=== PATIENT | female | born 1980 | race Caucasian/White ===

== ENCOUNTER 2020-05-07 05:21 | Inpatient (IN) | payer BC ==
[2020-05-07] MEDS ORDERED: Scopolamine 1.5 MG Transdermal Patch TOP ONE (05:30)
[2020-05-07] MEDS ORDERED: Celecoxib 200 MG Cap PO ONE (05:30)
[2020-05-07] MEDS ORDERED: Acetaminophen 500 MG Tab PO ONE (05:30)
[2020-05-07] MEDS ORDERED: Dextrose 5%-Lactated Ringers 1,000 ML IV SCH ×2 (06:00→10:15)
[2020-05-07] MEDS ORDERED: cefOXitin 2 GM Vial ONE (06:35)
[2020-05-07] MEDS ORDERED: fentaNYL 250 MCG/5 ML SDV ONE (06:56)
[2020-05-07] MEDS ORDERED: Ondansetron 4 MG/2 ML SDV ONE (06:57)
[2020-05-07] MEDS ORDERED: Succinylcholine 200 MG/10 ML MDV ONE (06:57)
[2020-05-07] MEDS ORDERED: Neostigmine Methylsulfate 1 MG/ML 5 ML Syringe ONE (06:57)
[2020-05-07] MEDS ORDERED: Propofol 200 MG/20 ML SDV ONE (06:57)
[2020-05-07] MEDS ORDERED: Glycopyrrolate 0.2 MG/ML 5 ML MDV ONE (06:57)
[2020-05-07] MEDS ORDERED: Dexamethasone 4 MG/ML SDV ONE (06:57)
[2020-05-07] MEDS ORDERED: Rocuronium 50 MG/5 ML Vial ONE (06:57)
[2020-05-07] MEDS ORDERED: Albuterol/Ipratropium 3.0-0.5 MG/3 ML Neb Soln NEB ONE (07:00)
[2020-05-07] MEDS ORDERED: cefOXitin 2 GM in Sodium Chloride 0.9% 50 ML IV ONE (07:00)
[2020-05-07] MEDS ORDERED: Magnesium Sulfate 3.9 GM in Sodium Chloride 0.9% 100 ML IV SCH (07:15)
[2020-05-07] MEDS ORDERED: Ketamine 500 MG/5 ML MDV IV SCH (07:15)
[2020-05-07] MEDS ORDERED: Ketamine 50 MG in Sodium Chloride 0.9% 49.5 ML IV SCH (07:15)
[2020-05-07] MEDS ORDERED: Lactated Ringers 1,000 ML ONE (07:42)
[2020-05-07] MEDS ORDERED: SODIUM CHLORIDE 0.9% IV ONE (07:45)
[2020-05-07] MEDS ORDERED: MAGNESIUM SULFATE IV ONE (07:45)
[2020-05-07] MEDS ORDERED: fentaNYL 100 MCG/2 ML SDV ONE (07:48)
[2020-05-07] MEDS ORDERED: Ondansetron 4 MG/2 ML SDV IVPUSH PRN (10:09)
[2020-05-07] MEDS ORDERED: Cyclobenzaprine 10 MG Tab PO PRN (10:11)
[2020-05-07] MEDS ORDERED: Metoclopramide 10 MG/2 ML SDV IVPUSH PRN (11:00)
[2020-05-07] MEDS ORDERED: hydrOXYzine HCL 100 MG/2 ML SDV IM PRN (11:00)
[2020-05-07] MEDS ORDERED: HYDROmorphone 0.5 MG/0.5 ML Syringe IVPUSH PRN (11:00)
[2020-05-07] MEDS ORDERED: Labetalol 20 MG/4 ML Syringe IVPUSH PRN (11:00)
[2020-05-07] MEDS ORDERED: oxyCODONE 5 MG Tab PO PRN (11:00)
[2020-05-07] MEDS ORDERED: diphenhydrAMINE 50 MG/ML SDV IVPUSH PRN (11:00)
[2020-05-07] MEDS ORDERED: HYDROmorphone 1 MG/ML Syringe IV PRN (11:00)
[2020-05-07] MEDS ORDERED: Calcium Gluconate 10% 1 GM/10 ML SDV IVPUSH PRN (11:00)
[2020-05-07] MEDS ORDERED: Acetaminophen 500 MG Tab PO PRN (11:00)
[2020-05-07] MEDS: Pantoprazole 40 MG Vial IVPUSH SCH (12:23)
[2020-05-07] MEDS: cefOXitin 2 GM in Sodium Chloride 0.9% 50 ML IV SCH ×3 (12:37→23:54)
[2020-05-07] MEDS: Acetaminophen 500 MG Tab PO SCH ×2 (13:55→21:01)
[2020-05-07] MEDS: MVI, Adult with Vitamin K 10 ML, Thiamine 200 MG, Zinc/Copper/Manganese/Selenium 1 ML i... IV SCH ×4 (15:55)
[2020-05-07] MEDS: Heparin Sodium 5,000 Units/ML Vial SUBCUT SCH (20:55)
[2020-05-07] MEDS: Dextrose 5%-Lactated Ringers 1,000 ML IV SCH (22:16)
[2020-05-08] MEDS ORDERED: Iopamidol 612 MG/ML 50 ML SDV PO STA (03:10)
[2020-05-08] MEDS: Acetaminophen 500 MG Tab PO SCH ×3 (06:09→21:04)
[2020-05-08] MEDS: cefOXitin 2 GM in Sodium Chloride 0.9% 50 ML IV SCH ×2 (06:11→13:05)
[2020-05-08] MEDS ORDERED: Ondansetron 4 MG Tab.DIS PO PRN (06:51)
[2020-05-08] MEDS ORDERED: hydrOXYzine HCl 25 MG Tab PO PRN (06:51)
[2020-05-08] MEDS: Heparin Sodium 5,000 Units/ML Vial SUBCUT SCH ×2 (08:12→20:57)
--- NOTE | 2020-05-08 08:48 | PN ---
DATE OF SERVICE: 05/08/2020 SUBJECTIVE: Kaylie is postoperative day 1. Upper GI was normal. Vital signs have been stable. She has been up ambulating. Oral intake 940. Urine output 5800. ABHAY drain put out 200 mL of serosanguineous drainage. Remainder of review of systems negative for any pertinent positives and negatives. OBJECTIVE: GENERAL: Kaylie Franco is a pleasant 39-year-old female. She is alert and orientated. VITAL SIGNS: TPR; 98.2, 76, 18. Blood pressure 128/72. HEENT: Negative. NECK: Supple. HEART: Regular rate and rhythm. LUNGS: Clear. ABDOMEN: Dressing dry and intact. Abdominal binder is on. EXTREMITIES: Without peripheral edema. ASSESSMENT: Laparoscopic Maciej-en-Y gastric bypass surgery, liver biopsy, repair of diaphragmatic hernia and excision of mediastinal lipoma for morbid obesity, hepatomegaly, diaphragmatic hernia, and mediastinal lipoma. Date of procedure: 05/07/2020. Surgeon: Mert Bush MD. PLAN: 1. Dressing off, september shower. 2. Step 2 gastric bypass diet with no cereal. 3. Zofran ODT 4 mg every 4 hours sublingual p.r.n. nausea. 4. Atarax 25 mg p.o. q.4 hours p.r.n. pain, to try before giving the oxycodone per energy protocol. 5. Ambulate 6 times daily. 6. Use incentive spirometer 10 times every hour while awake. 7. Three med cups per hour, 1 every 20 minutes, record at bedside. 8. Discontinue IV Dilaudid. 9. Discontinue continuous pulse ox and traffic monitor specialist. 10.We will evaluate p.r.n. or in a.m. Dhara Sahni PA-C /[id number]
[2020-05-08] MEDS: Cetirizine 10 MG Tab PO SCH (08:59)
[2020-05-08] MEDS: Escitalopram 20 MG Tab PO SCH (08:59)
[2020-05-08] MEDS: Celecoxib 200 MG Cap PO SCH ×2 (08:59→20:58)
[2020-05-08] MEDS: amLODIPine 5 MG Tab PO SCH (09:00)
[2020-05-08] MEDS: Losartan 50 MG Tab PO SCH (09:01)
[2020-05-08] MEDS: SCOPOLAMINE PATCH CHECK TOP SCH (09:01)
--- NOTE | 2020-05-08 09:28 | CR ---
[facility] HISTORY: Postbariatric surgery FINDINGS: Patient swallowed water-soluble contrast. Upright views of the abdomen show no evidence of extravasation or obstruction. There is a surgical drain left upper quadrant. IMPRESSION: Status post bariatric surgery No extravasation or obstruction seen
[2020-05-08] MEDS: Dextrose 5%-Lactated Ringers 1,000 ML IV SCH (11:53)
[2020-05-08] MEDS: Pantoprazole 40 MG Vial IVPUSH SCH (13:06)
[2020-05-08] MEDS: MVI, Adult with Vitamin K 10 ML, Thiamine 200 MG, Zinc/Copper/Manganese/Selenium 1 ML i... IV SCH ×4 (15:57)
[2020-05-09] MEDS: Acetaminophen 500 MG Tab PO SCH (06:19)
[2020-05-09] MEDS ORDERED: Pantoprazole 40 MG Delayed-Release Granules 1 Packet PO SCH (07:30)
[2020-05-09] MEDS: Celecoxib 200 MG Cap PO SCH (08:27)
[2020-05-09] MEDS: Escitalopram 20 MG Tab PO SCH (08:27)
[2020-05-09] MEDS: Heparin Sodium 5,000 Units/ML Vial SUBCUT SCH (08:27)
[2020-05-09] MEDS: amLODIPine 5 MG Tab PO SCH (08:27)
[2020-05-09] MEDS: Losartan 50 MG Tab PO SCH (08:27)
[2020-05-09] MEDS: SCOPOLAMINE PATCH CHECK TOP SCH (08:28)
[2020-05-09] MEDS: Cetirizine 10 MG Tab PO SCH (08:29)
[2020-05-09] MEDS ORDERED: Magnesium Hydroxide 400 MG/5 ML Susp 30 ML Cup PO ONE (09:00)
[2020-05-09] MEDS ORDERED: Cyanocobalamin (Vitamin B12) 1,000 MCG/ML SDV IM ONE (09:00)
--- NOTE | 2020-05-09 10:17 | DISCH ---
ADMISSION DIAGNOSES: 1. Morbid obesity. 2. Body mass index 45.2. 3. Hypertension. 4. Asthma. 5. Joint and back pain. 6. Depression. 7. Anxiety. 8. Gastroesophageal reflux disease. 9. Migraine headaches. 10.Degeneration of lumbosacral intervertebral disk. 11.Spondylolisthesis at L4-L5. DISCHARGE DIAGNOSES: 1. Laparoscopic Maciej-en-Y gastric bypass surgery. 2. Liver biopsy. 3. Repair of diaphragmatic hernia. 4. Excision of mediastinal lipoma. POSTOPERATIVE DIAGNOSES: 1. Morbid obesity. 2. Hepatomegaly. 3. Diaphragmatic hernia. 4. Mediastinal lipoma. 5. Date of procedure: 05/07/2020. Surgeon: Mert Bush MD. HISTORY: Kaylie Franco is a pleasant 39-year-old female with longstanding history of morbid obesity and increasing comorbidities. After preoperative evaluation, discussion of possible risks and possible complications, she wished to proceed with surgical procedure. HOSPITAL COURSE: Kaylie had her surgery on 05/07/2020. She had no operative complications. On postoperative day #1, she was started on a step 2 with no cereal gastric bypass diet. Her activity was good. Vital signs stable. Pain was well managed. She received adequate dietary instruction as well as a vitamin B12 1000 mcg IM injection. She was ready to be discharged to home on postoperative day #2. PHYSICAL EXAMINATION: GENERAL: Kaylie Franco is a pleasant 39-year-old female, alert, orientated. VITAL SIGNS: Height 5 feet 8 inches, weight is 297 pounds, BMI is 45.2. TPR is 96.8, 68, 18, blood pressure 116/64. HEENT: Negative. NECK: Supple. HEART: Regular rate and rhythm. LUNGS: Clear. ABDOMEN: Trocar sites are healing well. Sutures in place. EXTREMITIES: Without peripheral edema. DISPOSITION: Discharged to home. CONDITION: Stable and improving. FOLLOWUP: Appointment with Dhara Sahni PA-C, on 05/16/2020 at 12:15 p.m. HOME MEDICATIONS: 1. Zofran ODT 4 mg every 4 hours p.r.n. nausea or vomiting. 2. Tylenol 1000 mg every 8 hours for pain as needed. 3. Celebrex 200 mg b.i.d. daily for 2 weeks. 4. Resume home medication of: a. Cetirizine 10 mg oral daily. b. Lexapro 20 mg oral daily. c. Lunesta 3 mg oral at bedtime. d. Cozaar 100 mg oral daily. e. Omeprazole 20 mg oral daily. f. Papaya enzyme p.r.n. g. Imitrex 100 mg oral as directed p.r.n. migraine headache. h. Norvasc 5 mg oral daily. 5. Discontinue taking vitamins and supplements until after first postop appointment. DIET: Step 2 gastric bypass diet with no cereal until 05/22/2020. Drink 8 to 10 glasses of water a day. ACTIVITY: Walk 6 times daily inside your home. Driving: Do not drive for 1 week. Shower/bathing: May shower. DISCHARGE INSTRUCTIONS: Notify provider if any fever, increased pain, swelling, redness, drainage, nausea, or vomiting. Wound incision care: Keep site clean and dry. Wear abdominal binder for 2 weeks and then as tolerated. SPECIAL INSTRUCTION: Use incentive spirometer 10 times every hour while awake for 1 week. /[id number]
--- NOTE | 2020-05-24 09:37 | OR ---
DATE OF PROCEDURE: 05/07/2020 SURGEON: Mert Bush MD PREOPERATIVE DIAGNOSIS: Morbid obesity. POSTOPERATIVE DIAGNOSES: 1. Morbid obesity. 2. Marked hepatomegaly. 3. Paraesophageal diaphragmatic hernia. 4. Mediastinal lipoma. OPERATIVE PROCEDURES: Diagnostic laparoscopy with; 1. Laparoscopic Maciej-en-Y gastric bypass with long limb gastroenterostomy (81801). 2. Wolf-Cut needle liver biopsy (56235). 3. Repair of paraesophageal diaphragmatic hernia (39777). 4. Excision of mediastinal lipoma (73016). ANESTHESIA: General. MUNITIONS HANDLER SUPERVISOR: Dhara Sahni PA-C INDICATIONS FOR PROCEDURE: This is a 39-year-old female presenting with longstanding morbid obesity and increasingly significant comorbidities. After preoperative evaluation and discussion, she wished to proceed with a gastric bypass procedure. Potential risks of the procedure including bleeding infection injury to underlying viscera, problems with both bowel obstruction and anastomotic leaks as well as possibility of cardiopulmonary, septic, or hemorrhagic complications leading to were discussed, and the patient wishes to proceed. DETAILS OF PROCEDURE: The patient was taken to the operating room and placed in a supine position after general endotracheal anesthesia was induced. She was converted to a lithotomy position, and the abdomen was prepped and draped. At 15 cm inferior and 5 cm left of the xiphoid process, a transverse incision was made and peritoneal cavity entered under direct vision with an Optiview trocar, inflated to 15 mmHg pressure with CO2. The laparoscope was then reinserted. No underlying trocar insertion site injuries were seen. Following this, 5 additional trocars were placed across the upper mid abdomen, and bilateral transversus abdominis plane blocks were placed. The patient was noted to have marked hepatomegaly with liver volume being roughly 2 to 3 times normal, and liver grossly fatty infiltrated. Wolf-Cut needle biopsy was obtained from left lobe of the liver. Minimal bleeding from the biopsy sites was controlled with electrocautery. The omentum was then divided in the midline up to the level of the transverse colon. This allowed identification of the small bowel to the ligament of Treitz. Small bowel was then traced out 125 cm distal to that point, where it was divided transversely with a ROHIT stapler. Small bowel was then traced out an additional 150 cm, where the [id number] enteroenterostomy was accomplished with internal firing of the Endo-ROHIT 60 mm stapler. The common opening was then closed transversely with the same stapler, angles anastomosed, mesenteric defect approximated with some 0 Ethibond stitch along with fibrin sealant. The divided end of the Maciej limb was brought up to the level of the diaphragm without any tension at this point. The liver was retracted anteriorly. The patient was noted to have a moderate-sized paraesophageal diaphragmatic hernia with prolapse of some perigastric fat and gastric fundus in the plane anterior to the course of the esophagus. This was reduced and the peritoneum overlying this excised and reflected downward. During the course of the dissection, mediastinal lipoma was encountered, and this was excised to facilitate a more adequate crural repair, which was accomplished anteriorly with some 0 Ethibond sutures reinforced with PTFE pledgets. The gastrointestinal balloon catheter was then inflated to 15 mL and pulled up snugly against the EG junction. [place] of the balloon was then marked, we opened the gastric cardia, and balloon was deflated and withdrawn. The lesser omental tissue adjacent to the gastric cardia was then incised allowing dissection behind the stomach at that level. The pouch formation was initiated with transverse firing of the ROHIT stapler at the level of the cauterized darlene in the gastric cardia. The pouch was completed with additional firings of ROHIT christiano up to and through the angle of His. Upon completion of the pouch, both staple lines were noted to be intact. The anvil of a 25 mm EEA stapler was attached to [place] sump type tube. The latter was brought down through the mouth, taken out through a small opening in the gastric pouch, allowing the anvil likewise to be pulled down to within the gastric pouch. The divided end of Maciej limb was then opened, and main body of EEA stapler passed several centimeters in the lumen of small bowel, brought up the anvil, and united with it thus creating the gastrojejunostomy. Upon removal of stapler, double donuts of mucosa were noted within it. Small bowel was closed off with a vascular staple line. Gastrojejunostomy was reinforced with some 3-0 Vicryl seromuscular stitch along with fibrin sealant. Leak test was accomplished with injection of 120 mL of air in the gastric pouch, while it was submerged with cefoxitin-containing saline solution. No leaks were identified. A single Naresh- Grewal drain was taken out through the left lateral trocar site and positioned adjacent to the gastrojejunostomy, from there up into the splenic fossa. The trocars were removed, and peritoneal cavity deflated. Incisions were closed with 4-0 Vicryl skin stitch, which was also used to fix the drain. The patient was taken to the recovery room in satisfactory condition. There were no evident complications. Physician broker assistant, Dhara Sahni, played an essential role in assisting in this case, helping to position the patient, retract structures as needed, as well as suturing and cutting sutures when indicated. Her presence improved patient safety and decreased operative time. Mert Bush MD /[id number]
== END 2020-05-09 12:15 | disposition home or self-care (01) | DRG 403 ==
LOC: JP.SDS 05:21 → JP.SDSSCHI 05:21 → EDSTATUS 08:15 → JP.MS 09:40
PROVIDERS: ADMIT Surgery; ATTEND Surgery
PROC: 0D164ZA Bypass Stomach to Jejunum, Percutaneous Endoscopic Approach (ICD-10-PCS; principal; 2020-05-07)
PROC: 0FB24ZX Excision of Left Lobe Liver, Percutaneous Endoscopic Approach, Diagnostic (ICD-10-PCS; 2020-05-07)
PROC: 0BQT4ZZ Repair Diaphragm, Percutaneous Endoscopic Approach (ICD-10-PCS; 2020-05-07)
PROC: 0JB63ZZ Excision of Chest Subcutaneous Tissue and Fascia, Percutaneous Approach (ICD-10-PCS; 2020-05-07)
DX: E66.01 Morbid (severe) obesity due to excess calories (principal); R16.0 Hepatomegaly, not elsewhere classified; Z68.42 Body mass index [BMI] 45.0-49.9, adult; I10 Essential (primary) hypertension; J45.909 Unspecified asthma, uncomplicated; F41.9 Anxiety disorder, unspecified; F32.9 Major depressive disorder, single episode, unspecified; K21.9 Gastro-esophageal reflux disease without esophagitis; K44.9 Diaphragmatic hernia without obstruction or gangrene; D17.1 Benign lipomatous neoplasm of skin and subcutaneous tissue of trunk; G47.33 Obstructive sleep apnea (adult) (pediatric); M43.16 Spondylolisthesis, lumbar region; Z88.5 Allergy status to narcotic agent; Z79.899 Other long term (current) drug therapy
CPT/HCPCS: 36415; 74240; 74240-26; 81025; 82962; 86850; 86900; 86901; 88304; 88307; 88313; 93005; 93010; 94640; 94762; A9270-GY; C9113; J0171; J0330; J0694; J1100; J1644; J2405; J2704; J2710; J2765; J2795; J3010; J3411; J3420; J3475; J3490; J7050; J7120; J7121; J7620-GY; Q9967